=== PATIENT | male | born 1980 | race Caucasian/White ===

== ENCOUNTER 2016-08-02 09:31 | Outpatient (CLI) | payer OTHER ==
[2016-08-02 10:08] LABS: Amphetamine Not Detected (NotDetected); Barbiturates Screen Not Detected (NotDetected); Benzodiazepine Screen Not Detected (NotDetected); Cocaine Metabolite Screen Not Detected (NotDetected); Medtox Control Line Valid? VALID (VALID); Methadone Not Detected (NotDetected); Methamphetamine Not Detected (NotDetected); Opiate Screen Not Detected (NotDetected); Oxycodone Screen Not Detected (NotDetected); Phencyclidine (PCP) Not Detected (NotDetected); THC/Cannabinoid Screen Not Detected (NotDetected); Tricyclic Screen Not Detected (NotDetected)
== END 2016-08-02 09:32 | disposition home or self-care (01) ==
LOC: NAV LAB 09:31
DX: Z00.00 Encounter for general adult medical examination without abnormal findings (principal)
CPT/HCPCS: 80306

== ENCOUNTER 2017-03-13 06:10 | Emergency (ER) | payer BC ==
[2017-03-13] MEDS ORDERED: Ketorolac Tromethamine 30 MG/ML VIAL ONE (06:49)
== END 2017-03-13 07:06 | disposition home or self-care (01) ==
LOC: NAV ERS 06:10
DX: R51 Headache (principal); E78.5 Hyperlipidemia, unspecified; F17.210 Nicotine dependence, cigarettes, uncomplicated; Z79.899 Other long term (current) drug therapy
CPT/HCPCS: 96372; J1885

== ENCOUNTER 2019-10-14 15:56 | Outpatient (CLI) | payer BC ==
--- NOTE | 2019-10-14 16:16 | RAD ---
LEFT WRIST 3 VIEWS: HISTORY: Left wrist pain FINDINGS: No acute fracture or dislocation is identified. If symptoms do not improve, a follow-up exam should be obtained in 7-10 days.
== END 2019-10-14 15:57 | disposition home or self-care (01) ==
LOC: NAV RAD 15:56
PROVIDERS: ATTEND Family Medicine
DX: M25.532 Pain in left wrist (principal)

== ENCOUNTER 2022-10-22 08:38 | Outpatient (CLI) | payer OTHER | END 2022-10-22 08:39 | disposition home or self-care (01) | LOC: NAV RAD 08:38 | PROVIDERS: ATTEND Nurse Practitioner Family | DX: S20.212A Contusion of left front wall of thorax, initial encounter (principal) ==